=== PATIENT | female | born 1985 | race Caucasian/White ===

== ENCOUNTER 2016-06-29 09:45 | Inpatient (IN) | payer OTHER ==
[~2016-06-29] VITALS: Ht 167.6 cm; Wt 78.2 kg
[2016-06-29] MEDS ORDERED: LACTATED RINGER'S 1,000 ML IV SCH (09:54)
[2016-06-29] MEDS ORDERED: OXYTOCIN 30 UNITS/LR 500 ML IV SCH (10:00)
[2016-06-29] MEDS ORDERED: CEFAZOLIN 2 GM/50 ML (PMX) 50 ML IV SCH (10:00)
[2016-06-29] MEDS ORDERED: CARBOPROST 250 MCG INJ IM PRN ×2 (10:00→14:00)
[2016-06-29] MEDS ORDERED: METHYLERGONOVINE 0.2 MG INJ IM PRN ×2 (10:00→14:00)
[2016-06-29] MEDS ORDERED: OXYTOCIN 30 UNITS/LR 500 ML IV PRN ×2 (10:00→14:00)
[2016-06-29] MEDS ORDERED: MISOPROSTOL 200 MCG TAB PR PRN ×2 (10:00→14:00)
[2016-06-29 10:28] VITALS: Ht 167.6 cm; Wt 78.2 kg
[2016-06-29] MEDS ORDERED: PREN1TAB31 PO (10:28)
[2016-06-29 10:29] LABS: ADD SCAN DIFF NO
[2016-06-29 10:34] LABS: BASOPHILS % 0.3 % (0.0-2.0); EOSINOPHILS # 0.1 10^3/ul (0.0-0.5); EOSINOPHILS % 0.6 % (0.0-7.0); HEMATOCRIT 35.4 % (37.0-47.0); HEMOGLOBIN 12.2 g/dl (12.0-16.0); LYMPHOCYTES # 1.4 10^3/ul (0.8-2.9); LYMPHOCYTES % 13.3 % (15.0-51.0); MEAN CORPUSCULAR HEMOGLOBIN 32.8 pg (29.0-33.0); MEAN CORPUSCULAR HGB CONC 34.5 g/dl (32.0-37.0); MEAN CORPUSCULAR VOLUME 95.2 fl (82.0-101.0); MEAN PLATELET VOLUME 9.9 fl (7.4-10.4); MONOCYTE # 0.7 10^3/ul (0.3-0.9); MONOCYTES % 6.8 % (0.0-11.0); NEUTROPHILS % 78.1 % (39.0-77.0); PLATELET COUNT 126 10^3/UL (140-415); RED BLOOD COUNT 3.72 10^6/ul (4.20-5.40); RED CELL DISTRIBUTION WIDTH 13.2 % (11.5-14.5); WHITE BLOOD COUNT 10.2 10^3/ul (4.8-10.8)
[2016-06-29 10:57] LABS: INR 0.96; PROTIME 12.8 Sec (12.2-14.2)
[2016-06-29 10:58] LABS: PARTIAL THROMBOPLASTIN TIME 27.3 Sec (25.0-35.0)
[2016-06-29] MEDS ORDERED: LACTATED RINGER'S 1,000 ML IV ONE (11:52)
[2016-06-29] MEDS ORDERED: METOCLOPRAMIDE 10 MG INJ IV ONE (12:00)
[2016-06-29] MEDS ORDERED: CITRIC ACID/NA CITRATE 30 ML CUP PO ONE (12:00)
[2016-06-29] MEDS ORDERED: FAMOTIDINE 20 MG INJ IV ONE (12:00)
[2016-06-29] MEDS ORDERED: CITRIC ACID/SODIUM CITRATE 15 ML CUP ONE (12:22)
--- NOTE | 2016-06-29 12:35 | PREOPHP ---
DATE OF ADMISSION: 06/29/2016 HISTORY OF PRESENT ILLNESS: Ms. Dumont is 30-year-old 2, para 1, EDC 07/06/2016 intrauter ine at 39 weeks' gestational age, admitted today for an elective primary delivery with bilateral tubal sterilization. She has a history of a fourth-degree vaginal laceration in her prior . She currently denies any contractions, vaginal bleeding, or discharge. Positive movement. She has a significant history of positive urine toxicology in this current pregnanc y with marijuana and cocaine. PAST MEDICAL HISTORY: None. MEDICATIONS: vitamins. PAST SURGICAL HISTORY: Vitamins. OBSTETRICAL HISTORY: Times 1 termination of and x1 vaginal delivery. GYNECOLOGIC HISTORY: Twelve, regular 3 to 4 days. Denies any sexually transmitted diseases. Sexua lly active with 1 partner. SOCIAL HISTORY: Positive urine toxicology; however, denies any drugs or alcohol. FAMILY HISTORY: None. PHYSICAL EXAMINATION: HEENT: Within normal. LUNGS: CTA bilateral. CARDIOVASCULAR: S1, S2, regular rhythm. ABDOMEN: Gravid, nontender. Negative CVA bilateral. EXTREMITIES: Negative edema. No calf tenderness. PELVIC: Vaginal exam deferred. ASSESSMENT: A 30-year-old 3, para 1, intrauterine at 39 weeks' gestational age, d esires elective primary delivery with bilateral tubal sterilization. PLAN: Consent for a primary with bilateral tubal ligation. Risks, benefits and alternati ves explained. All questions were answered. Dictated By: PRISCILLA GALLEGOS/MOHAN Conf#: [id number] DID#: [id number]
[2016-06-29] MEDS ORDERED: morphine SULFATE/PF (10 MG/10 ML) INJ ONE (12:49)
[2016-06-29] MEDS ORDERED: FENTAnyl 50 MCG/ML VIAL ONE (12:49)
[2016-06-29] MEDS ORDERED: PHENYLephrine (100 MCG/ML) 5ML SYG ONE (13:01)
[2016-06-29] MEDS ORDERED: EPHEDrine SULFATE 50 MG/5 ML SYG ONE (13:03)
[2016-06-29] MEDS ORDERED: OXYTOCIN 30 UNITS/LR 500 ML IV ONE (13:26)
[2016-06-29] MEDS ORDERED: KETOROLAC 30 MG INJ IV PRN (13:30)
[2016-06-29] MEDS ORDERED: FENTAnyl 50 MCG/ML VIAL IV PRN (13:30)
[2016-06-29] MEDS ORDERED: DIPHENHYDRAMINE 50 MG INJ IV PRN (13:30)
[2016-06-29] MEDS ORDERED: MEPERIDINE 25 MG INJ IV PRN (13:30)
[2016-06-29] MEDS ORDERED: PROCHLORPERAZINE 10 MG INJ IV PRN ×2 (13:30→15:00)
[2016-06-29] MEDS ORDERED: HYDROmorphONE (0.2 MG/ML) 10ML SYG IV PRN (13:30)
[2016-06-29] MEDS ORDERED: ONDANSETRON 4 MG INJ IV PRN ×2 (13:30→15:00)
[2016-06-29] MEDS ORDERED: ONDANSETRON 4 MG INJ ONE (13:38)
[2016-06-29 13:48] LABS: BARBITURATES NEGATIVE (NEGATIVE); BENZODIAZEPINES NEGATIVE (NEGATIVE); CANNABINOIDS NEGATIVE (NEGATIVE); COCAINE NEGATIVE (NEGATIVE); OPIATES NEGATIVE (NEGATIVE)
[2016-06-29] MEDS ORDERED: OXYCODONE/ACETAMINOPHEN (5/325) TAB PO PRN (14:00)
[2016-06-29] MEDS ORDERED: LANOLIN 7 GM TUBE TOP PRN (14:00)
[2016-06-29] MEDS ORDERED: DIPHENHYDRAMINE 50 MG INJ ONE (14:40)
[2016-06-29] MEDS ORDERED: NALOXONE (0.4 MG/ML) INJ IV PRN (15:00)
[2016-06-29] MEDS ORDERED: ZOLPIDEM 5 MG TAB PO PRN (15:00)
[2016-06-29] MEDS ORDERED: HYDROmorphONE 1 MG/ML SYG IV PRN (15:00)
[2016-06-29] MEDS: DIPHENHYDRAMINE 50 MG INJ IV PRN ×2 (15:01→22:24)
[2016-06-29] MEDS: KETOROLAC 30 MG INJ IV PRN (15:43)
[2016-06-29] MEDS: HYDROmorphONE 1 MG/ML SYG IV PRN (16:28)
[2016-06-29 17:37] VITALS: BP 119/56; PULSE 76; RESP 17
[2016-06-29] MEDS: LACTATED RINGER'S 1,000 ML IV SCH ×2 (18:56→21:49)
[2016-06-29 20:00] VITALS: BP 110/61; PULSE 78; RESP 20
[2016-06-29] MEDS: SENNA/DOCUSATE NA (8.6MG/50MG) TAB PO SCH (21:00)
[2016-06-30] MEDS: LACTATED RINGER'S 1,000 ML IV SCH ×2 (02:39→10:26)
[2016-06-30 03:33] VITALS: BP 115/66; PULSE 79; RESP 20
[2016-06-30] MEDS: HYDROmorphONE 1 MG/ML SYG IV PRN ×2 (04:31→12:21)
[2016-06-30 07:40] VITALS: BP 116/60; PULSE 72; RESP 16
[2016-06-30] MEDS: SENNA/DOCUSATE NA (8.6MG/50MG) TAB PO SCH ×2 (08:02→20:22)
[2016-06-30] MEDS: KETOROLAC 30 MG INJ IV PRN ×3 (08:03→13:24)
[2016-06-30 08:56] LABS: ADD SCAN DIFF NO
[2016-06-30 09:01] LABS: BASOPHILS % 0.3 % (0.0-2.0); EOSINOPHILS # 0.1 10^3/ul (0.0-0.5); EOSINOPHILS % 0.5 % (0.0-7.0); HEMATOCRIT 30.5 % (37.0-47.0); HEMOGLOBIN 10.2 g/dl (12.0-16.0); LYMPHOCYTES # 1.3 10^3/ul (0.8-2.9); LYMPHOCYTES % 11.5 % (15.0-51.0); MEAN CORPUSCULAR HEMOGLOBIN 32.8 pg (29.0-33.0); MEAN CORPUSCULAR HGB CONC 33.4 g/dl (32.0-37.0); MEAN CORPUSCULAR VOLUME 98.1 fl (82.0-101.0); MEAN PLATELET VOLUME 10.1 fl (7.4-10.4); MONOCYTE # 0.8 10^3/ul (0.3-0.9); MONOCYTES % 6.7 % (0.0-11.0); NEUTROPHIL # 9.3 10^3/ul (1.6-7.5); NEUTROPHILS % 80.3 % (39.0-77.0); PLATELET COUNT 109 10^3/UL (140-415); RED BLOOD COUNT 3.11 10^6/ul (4.20-5.40); RED CELL DISTRIBUTION WIDTH 13.3 % (11.5-14.5); WHITE BLOOD COUNT 11.6 10^3/ul (4.8-10.8)
--- NOTE | 2016-06-30 09:24 | PN ---
Date/Time of Note Date/Time of Note DATE: 06/30/16 TIME: 09:18 OB Subjective Subjective Subjective Post C Section day 1 Afebrile Ambulatory Breasts are soft Nipples are intact Fundus is firm Moderate amount of lochia New born is doing well Laboratory Tests Test 06/29/16 10:00 06/29/16 12:00 06/30/16 08:22 White Blood Count 10.210^3/ul Red Blood Count 3.7210^6/ul Hemoglobin 12.2g/dl Hematocrit 35.4% Mean Corpuscular Volume 95.2fl Mean Corpuscular Hemoglobin 32.8pg Mean Corpuscular Hemoglobin Concent 34.5g/dl Red Cell Distribution Width 13.2% Platelet Count 06272^3/UL Mean Platelet Volume 9.9fl Neutrophils % 78.1% Lymphocytes % 13.3% Monocytes % 6.8% Eosinophils % 0.6% Basophils % 0.3% Nucleated Red Blood Cells % 0.0/100WBC Neutrophils # 8.010^3/ul Lymphocytes # 1.410^3/ul Monocytes # 0.710^3/ul Eosinophils # 0.110^3/ul Basophils # 0.010^3/ul Nucleated Red Blood Cells # 0.010^3/ul Prothrombin Time 12.8Sec Prothrombin Time Ratio 1.0 INR International Normalized Ratio 0.96 Activated Partial Thromboplast Time 27.3Sec Rapid Plasma Reagin NONREACTIVE Urine Opiates Screen NEGATIVE Urine Barbiturates NEGATIVE Urine Amphetamines Screen NEGATIVE Urine Benzodiazepines Screen NEGATIVE Urine Cocaine Screen NEGATIVE Urine Cannabinoids NEGATIVE Lab Scanned Report REFERENCE [id number] Current Medications Medications (Trade) Dose Ordered Sig/Ralf Route PRN Reason Start Time Stop Time Status Last Admin Dose Admin Lactated Ringer's 1,000 ml @ 125 mls/hr Q8H IV 06/29/16 09:54 06/29/16 13:52 DC 06/29/16 10:26 Cefazolin Sodium/ Dextrose 50 ml @ 100 mls/hr ONCE IV 06/29/16 10:00 06/29/16 13:52 DC Oxytocin/Lactated Ringer's 500 ml @ 125 mls/hr ONCE IV 06/29/16 10:00 06/29/16 13:52 DC Oxytocin/Lactated Ringer's 500 ml @ 0 mls/hr ONCE PRN IV For Hemorrhage Management 06/29/16 10:00 06/29/16 13:52 DC Methylergonovine Maleate (Methergine) 0.2 mg ONCE PRN IM VAGINAL BLEEDING 06/29/16 10:00 06/29/16 13:53 DC Carboprost Tromethamine (Hemabate) 250 mcg ONCE PRN IM VAGINAL BLEEDING 06/29/16 10:00 06/29/16 13:53 DC Misoprostol 1000 mcg 1,[address] VAGINAL BLEEDING 06/29/16 10:00 06/29/16 13:53 DC Lactated Ringer's (Lr) 1,000 ml @ 1,000 mls/hr Q1H ONCE IV 06/29/16 11:52 06/29/16 16:29 DC 06/29/16 12:21 Citric Acid/ Sodium Citrate (Bicitra) 30 ml pre-procedure ONCE PO 06/29/16 12:00 06/29/16 12:01 DC 06/29/16 12:29 Famotidine (Pepcid Iv) 20 mg pre-procedure ONCE IV 06/29/16 12:00 06/29/16 16:29 DC 06/29/16 12:23 Metoclopramide HCl (Reglan) 10 mg ONCE ONCE IV 06/29/16 12:00 06/29/16 12:01 DC 06/29/16 12:23 Citric Acid/ Sodium Citrate (Bicitra) 15 ml STK-MED ONCE .ROUTE 06/29/16 12:22 06/29/16 12:23 DC Morphine Sulfate (Duramorph) 10 mg STK-MED ONCE .ROUTE 06/29/16 12:49 06/29/16 12:50 DC Fentanyl (Sublimaze) 100 mcg STK-MED ONCE .ROUTE 06/29/16 12:49 06/29/16 12:50 DC Phenylephrine HCl (Misael-Synephrine Inj Syg) 500 mcg STK-MED ONCE .ROUTE 06/29/16 13:01 06/29/16 13:02 DC Ephedrine Sulfate 50 mg STK-MED ONCE .ROUTE 06/29/16 13:03 06/29/16 13:04 DC Hydromorphone HCl (Dilaudid (Rec)) 0.4 mg PACU ORDER PRN IV PAIN 06/29/16 13:30 06/29/16 13:53 DC Fentanyl (Sublimaze) 25 mcg PACU ORDER PRN IV PAIN 06/29/16 13:30 06/29/16 13:53 DC Ketorolac Tromethamine (Toradol) 30 mg PACU ORDER PRN IV PAIN 06/29/16 13:30 06/29/16 13:53 DC Ondansetron HCl (Zofran Inj) 4 mg PACU ORDER PRN IV NAUSEA AND/OR VOMITING 06/29/16 13:30 06/29/16 13:53 DC Prochlorperazine (Compazine Inj) 5 mg PACU ORDER PRN IV NAUSEA AND/OR VOMITING 06/29/16 13:30 06/29/16 13:53 DC Meperidine HCl (Demerol) 25 mg PACU ORDER PRN IV POST-OP RIGORS 06/29/16 13:30 06/29/16 13:53 DC Diphenhydramine HCl 25 mg 25 mg PACU ORDER PRN IV PRURITUS 06/29/16 13:30 06/29/16 13:53 DC Oxytocin/Lactated Ringer's 500 ml @ ud STK-MED ONCE IV 06/29/16 13:26 06/29/16 13:27 DC Ondansetron HCl 4 mg 4 mg STK-MED ONCE .ROUTE 06/29/16 13:38 06/29/16 13:39 DC Lactated Ringer's (Lr) 1,000 ml @ 125 mls/hr Q8H IV 06/29/16 13:49 06/30/16 02:39 Oxycodone/ Acetaminophen (Percocet (5/ 325)) 1 tab Q4H PRN PO PAIN LEVEL 4-6 06/29/16 14:00 Oxycodone/ Acetaminophen (Percocet (5/ 325)) 2 tab Q4H PRN PO PAIN LEVEL 7-10 06/29/16 14:00 Ibuprofen (Motrin) 600 mg Q6 PO 06/30/16 18:00 Simethicone (Mylicon) 160 mg Q8H PRN PO DISTENSION/GAS/BLOATING 06/29/16 14:00 Senna/Docusate Sodium (Senokot-S) 1 tab BID PO 06/29/16 21:00 06/30/16 08:02 Lanolin 1 applic 1 applic BEDSIDE MEDICATION PRN TOP BEDSIDE FOR OLAMIDE TO NIPPLES 06/29/16 14:00 Oxytocin/Lactated Ringer's 500 ml @ 0 mls/hr ONCE PRN IV For Hemorrhage Management 06/29/16 14:00 06/29/16 14:59 Methylergonovine Maleate (Methergine) 0.2 mg ONCE PRN IM VAGINAL BLEEDING 06/29/16 14:00 Carboprost Tromethamine (Hemabate) 250 mcg ONCE PRN IM VAGINAL BLEEDING 06/29/16 14:00 Misoprostol (Cytotec) 1,[address] VAGINAL BLEEDING 06/29/16 14:00 Diphenhydramine HCl (Benadryl) 50 mg STK-MED ONCE .ROUTE 06/29/16 14:40 06/29/16 14:41 DC Naloxone HCl (Narcan) 0.1 mg Q2M PRN IV FOR RESP RATE 8 OR LESS 06/29/16 15:00 06/30/16 12:58 Ketorolac Tromethamine (Toradol) 30 mg Q6H PRN IV PAIN 06/29/16 15:00 06/30/16 12:58 06/30/16 08:03 Hydromorphone HCl (Dilaudid) 0.2 mg Q3H PRN IV PAIN LEVEL 1-5 06/29/16 15:00 06/30/16 12:58 Hydromorphone HCl (Dilaudid) 0.4 mg Q3H PRN IV PAIN LEVEL 6-10 06/29/16 15:00 06/30/16 12:58 06/30/16 04:31 Diphenhydramine HCl (Benadryl) 25 mg Q6H PRN IV ITCHING 06/29/16 15:00 06/30/16 12:58 06/29/16 22:24 Ondansetron HCl (Zofran Inj) 4 mg Q6H PRN IV NAUSEA AND/OR VOMITING 06/29/16 15:00 06/30/16 12:58 Prochlorperazine (Compazine Inj) 10 mg ONCE PRN IV NAUSEA AND/OR VOMITING 06/29/16 15:00 06/30/16 12:58 Zolpidem Tartrate (Ambien) 5 mg HS MAY REPEAT X 1 PRN PO INSOMNIA 06/29/16 15:00 06/30/16 12:58 Miscellaneous Information (* Miscellaneous Pharmacy Order) Duramorph: 0.2 mg Spi... GIVEN XX 06/29/16 15:00 06/30/16 12:58 Will remove dressing in AM MANOJ HERNANDEZ MD June 30, 2016 09:23
[2016-06-30 12:00] VITALS: BP 111/66; PULSE 77; RESP 16
--- NOTE | 2016-06-30 12:18 | OPR ---
DATE OF OPERATION: 06/29/2016 PRIMARY DIAGNOSIS: A 30-year-old 3, para 1, intrauterine at 39 weeks' gestationa l age with a history of fourth degree vaginal laceration repair, desires elective primary s ection with bilateral tubal sterilization. POSTOPERATIVE DIAGNOSIS: A 30-year-old 3, para 1, intrauterine at 39 weeks' gesta tional age with a history of fourth degree vaginal laceration repair, desires elective primary olamide henry section with bilateral tubal sterilization. OPERATION PERFORMED: Primary low transverse delivery via Pfannenstiel incision with bilate ral tubal ligation, Jesse method. SURGEON: Alex Hernandez MD DISTRICT MANAGER POSTAL SERVICE: Christopher Starkey MD ANESTHESIA: Spinal. COMPLICATIONS: None. ESTIMATED BLOOD LOSS: 500 mL. FINDINGS: A viable male, 9 and 9 respectively at 1 and 5 minutes, weight 7 pounds 14 ounces. Normal uterus, tubes and ovaries. DESCRIPTION OF PROCEDURE: After explaining the risks, benefits and alternatives and consent signed in chart, the patient was taken to the operating room where spinal anesthesia was found to be adequa te. She was then prepared and draped in normal sterile fashion in dorsal supine position with a lef tward tilt. A Pfannenstiel skin incision was then made with a scalpel and carried to the underlying layer of the fascia. The fascia was incised in the midline and the incision was extended laterally with Hendricks scissors. The superior aspect of the fascial incision was grasped with curved clamps, el evated and the underlying rectus muscles dissected off bluntly. Attention was then turned to the in ferior aspect of the incision which in similar fashion was grasped with curved clamps, elevated and the underlying rectus muscles dissected off bluntly. The rectus muscles were in midline, peritoneum identified, tented up and entered sharply with Metzenbaum scissors. The peritoneal incis ion was extended superiorly and inferiorly with good visualization of the bladder. The bladder blad e was then inserted and the vesicouterine peritoneum identified, grasped with pickups and entered sh arply with Metzenbaum scissors. This incision was extended laterally and a bladder flap created dig itally. The bladder blade was then reinserted and lower segment incised in transverse fashion with a scalpel. The uterine incision was extended laterally. The bladder blade was removed and the infa nt's head delivered atraumatically. The nose and mouth were suctioned and cord clamped and cut. Th e infant was handed off to awaiting mobile pet groomer. The placenta was removed. The uterus exteriorize d and cleared of all clots and debris. The uterine incision was repaired with 1-0 chromic in a runn ing locked fashion. A second layer of same suture was used for imbrication obtaining excellent hemo stasis. At this point, the left fallopian tube was grasped with a [place] 4 cm from the cornual reg ion. A 3 cm segment of the tube was ligated with a free tie of plain gut and excised. Good hemosta sis was noted. Similarly, the right fallopian tube was ligated. The uterus was returned to the abd omen. The gutters were cleared of all clots. Again, good hemostasis was noted from the left and ri ght ligated fallopian tubes. The peritoneum and rectus abdominis muscles were reapproximated with 3 -0 Vicryl. The fascia was reapproximated with 0 Vicryl in running fashion. The subcutaneous tissue was reapproximated with 2-0 plain gut in a running fashion. The skin was closed with lynette. The patient tolerated procedure well. Sponge, lap and needle counts correct x2. The patient was taken to recovery room in stable condition. Dictated By: ALEX GALLEGOS/MOHAN Conf#: [id number] DID#: [id number] CC: CHRISTOPHER STARKEY MD;*EndCC*
[2016-06-30 16:03] VITALS: BP 107/58; PULSE 75; RESP 16
[2016-06-30] MEDS: OXYCODONE/ACETAMINOPHEN (5/325) TAB PO PRN ×2 (16:40→20:23)
[2016-06-30] MEDS: IBUPROFEN 600 MG TAB PO SCH ×2 (17:12→23:48)
[2016-06-30 20:00] VITALS: BP 109/52; PULSE 78; RESP 20
[2016-07-01 02:31] VITALS: BP 111/64; PULSE 77; RESP 20
[2016-07-01] MEDS: IBUPROFEN 600 MG TAB PO SCH ×3 (05:13→17:36)
[2016-07-01 08:40] VITALS: BP 102/52; PULSE 75; RESP 16
[2016-07-01] MEDS: SENNA/DOCUSATE NA (8.6MG/50MG) TAB PO SCH ×2 (08:44→20:24)
[2016-07-01] MEDS: OXYCODONE/ACETAMINOPHEN (5/325) TAB PO PRN ×3 (08:45→20:24)
--- NOTE | 2016-07-01 13:24 | PD.PPDC ---
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
[2016-07-01 16:00] VITALS: BP 103/52; PULSE 65; RESP 18
[2016-07-01 19:45] VITALS: BP 103/59; PULSE 66; RESP 18
[2016-07-02] MEDS: OXYCODONE/ACETAMINOPHEN (5/325) TAB PO PRN ×2 (00:27→08:30)
[2016-07-02 04:30] VITALS: BP 111/56; PULSE 63; RESP 18
[2016-07-02] MEDS: IBUPROFEN 600 MG TAB PO SCH ×2 (06:05)
[2016-07-02 07:50] VITALS: BP 106/66; PULSE 61; RESP 16
[2016-07-02] MEDS: SENNA/DOCUSATE NA (8.6MG/50MG) TAB PO SCH (08:29)
--- NOTE | 2016-07-02 16:17 | DS ---
DATE OF ADMISSION: 06/29/2016 DATE OF DISCHARGE: 07/02/2016 PRIMARY DIAGNOSIS: A 30-year-old 3, para 1, intrauterine at 39 weeks' gestational age with a history of fourth degree vaginal laceration repair. Desires elective primary d elivery with bilateral tubal sterilization. PROCEDURE: Primary low transverse with bilateral tubal ligation, Charlie method. CONDITION ON DISCHARGE: Stable. ACTIVITY: None per vagina, no heavy lifting x6 weeks. DIET: Regular. MEDICATIONS ON DISCHARGE: 1. Motrin. 2. Percocet. 3. Iron. 4. Colace. DISCHARGE SUMMARY: Ms. China Dumont is a 30-year-old 3, para 2, status post primary low transverse delivery with bilateral tubal ligation on 06/29/2016. She had a viable male, Ap gar 9 and 9 respectively at 1 and 5 minutes, weight 7 pounds 14 ounces. She had an uneventful posto p day 1 and 2. She was discharged on postop day 3. Her incision is clean, dry, and intact. She is ambulating, tolerating diet, positive flatulence, positive bowel movement. She will follow up in t he office this Wednesday to remove her lynette. Dictated By: PRISCILLA GALLEGOS/MOHAN Conf#: [id number] DID#: [id number]
== END 2016-07-02 12:43 | disposition home or self-care (01) | DRG 767 ==
LOC: L-D 09:45 → PP1 17:17
PROVIDERS: ADMIT Obstetrics & Gynecology; ATTEND Obstetrics & Gynecology
PROC: 0UL70ZZ Occlusion of Bilateral Fallopian Tubes, Open Approach (ICD-10-PCS; 2016-06-29)
PROC: 10E0XZZ Delivery of Products of Conception, External Approach (ICD-10-PCS; principal; 2016-06-29 12:30)
DX: O80 Encounter for full-term uncomplicated delivery (principal); Z30.2 Encounter for sterilization; Z3A.39 39 weeks gestation of pregnancy; Z37.0 Single live birth
CPT/HCPCS: 62319; 80307; 85025; 85610; 85730; 86592; 86850; 86900; 86901; 88302; 94760; 99464; J0690; J1170; J1200; J1885; J2274; J2370; J2405; J2590; J2765; J3010; J7120